=== PATIENT | female | born 1945 | race Caucasian/White ===

== ENCOUNTER 2023-01-18 09:45 | Day surgery (SDC) | payer MEDICARE, BC ==
[2023-01-18] VITALS (12 sets, daily range): BP systolic 115–153; BP diastolic 56–88
[~2023-01-18] VITALS: Ht 170.2 cm; Wt 85.3 kg
[~2023-01-18 09:45] MED LIST: ACYC-126 PO; ASPI81TA44 PO; ATEN50TA PO; BENA40TA73 PO; CLOP75TA15 PO; DYR50C PO; ESOM20CA PO; FOLI1TAB27 PO; NIFE60TA10 PO; PITA2TAB2 PO; SOLI10TA2 PO
[2023-01-18] MEDS ORDERED: diphenhydrAMINE 25mg capsule PO PRN (10:10)
[2023-01-18] MEDS ORDERED: normal saline 1000ml 1,000 ML IV SCH ×2 (10:10→14:55)
[2023-01-18] MEDS ORDERED: GABA-530 PO (10:21)
[2023-01-18] MEDS ORDERED: EZET10TA48 PO (10:21)
[2023-01-18] MEDS ORDERED: ASCO-139 PO (10:21)
[2023-01-18] MEDS ORDERED: ALLO100T PO (10:21)
[2023-01-18] MEDS ORDERED: PANT20TA2 PO (10:21)
[2023-01-18] MEDS ORDERED: HYDR12.55 PO (10:21)
[2023-01-18] MEDS ORDERED: nitroGLYCERIN-Tridil 50MG/D5W 250 ML IV ONE (10:32)
[2023-01-18] MEDS ORDERED: fentaNYL/PF 50MCG/1 ML 2ML syringe ONE (10:33)
[2023-01-18] MEDS ORDERED: heparin 1,000unit/ml 10ml vial 10 ML ONE (10:33)
[2023-01-18] MEDS ORDERED: iohexol 350 MG/ML 50ML vial IV ONE ×3 (10:33→13:53)
[2023-01-18] MEDS ORDERED: LIDOcaine 1% (10mg/ml) 2ml vial ONE (10:33)
[2023-01-18] MEDS ORDERED: verapamil 2.5 mg/ml inj IV ONE (10:33)
[2023-01-18] MEDS ORDERED: midazolam 1 mg/ML 2ml injection ONE ×2 (10:33→13:49)
[2023-01-18] MEDS ORDERED: iohexol 350MG/ML 100ml bottle IV ONE ×2 (10:33→13:12)
[2023-01-18 10:45] LABS: BASOPHILS # (AUTO) 0.1 X10'3 (0-0.2); BASOPHILS % (AUTO) 1.1 % (0-1); EOSINOPHILS # (AUTO) 0.3 X10'3 (0-0.9); HEMOGLOBIN 13.9 g/dl (12.0-16.0); LYMPHOCYTES # (AUTO) 2.1 X10'3 (1.1-4.8); LYMPHOCYTES % (AUTO) 30.5 % (21-51); MEAN CORPUSCULAR HEMOGLOBIN 31.2 PG (27.0-31.0); MEAN PLATELET VOLUME 8.9 FL (7.4-10.4); MONOCYTES # (AUTO) 0.5 X10'3 (0-0.9); MONOCYTES % (AUTO) 7.8 % (2-12); NEUTROPHILS # (AUTO) 3.9 X10'3 (1.8-7.7); NEUTROPHILS % (AUTO) 55.6 % (42-75); PLATELET COUNT 251 X10'3 (140-440); RED BLOOD COUNT 4.45 X10'6 (4.20-5.60); RED CELL DISTRIBUTION WIDTH 14.5 % (11.5-14.5)
[2023-01-18 10:47] LABS: ALBUMIN 4.1 G/DL (3.4-5.0); ANION GAP 6 (8-16); BLOOD UREA NITROGEN 23 MG/DL (7-18); BUN/CREATININE RATIO 27.1 (10.0-20.0); CALCIUM 9.6 MG/DL (8.5-10.1); CHLORIDE 103 MMOL/L (99-107); CREATININE 0.85 MG/DL (0.40-0.90); GLUCOSE 97 MG/DL (70-104); MAGNESIUM 2.2 MG/DL (1.5-2.4); POTASSIUM 3.8 MMOL/L (3.5-5.1); SODIUM 139 MMOL/L (135-145); eGFR 65 ML/MIN
[2023-01-18] MEDS ORDERED: LIDOcaine 1% 30ml preserv. free vial ONE (12:48)
[2023-01-18] MEDS ORDERED: clopidogrel 300mg tablet ONE (14:07)
[2023-01-18] MEDS ORDERED: ondansetron/PF 4mg/2ml inj IV PRN (14:55)
[2023-01-18] MEDS ORDERED: proCHLORperazine 10 MG/2 ml inj IV PRN (14:55)
[2023-01-18] MEDS ORDERED: HYDROcodone/acetaminophen 5mg/325mg tablet PO PRN (14:55)
[2023-01-18] MEDS ORDERED: HYDROcodone/acetaminophen 10/325mg tab PO PRN (14:55)
== END 2023-01-18 19:00 | disposition home or self-care (01) ==
LOC: SSTAY O 09:45
PROVIDERS: ATTEND Internal Medicine Cardiovascular Disease
DX: I25.10 Atherosclerotic heart disease of native coronary artery without angina pectoris (principal); I10 Essential (primary) hypertension; E78.5 Hyperlipidemia, unspecified; Z79.899 Other long term (current) drug therapy; I25.118 Atherosclerotic heart disease of native coronary artery with other forms of angina pectoris; I25.5 Ischemic cardiomyopathy; F40.240 Claustrophobia; K21.9 Gastro-esophageal reflux disease without esophagitis; M10.9 Gout, unspecified; Z90.710 Acquired absence of both cervix and uterus; Z95.5 Presence of coronary angioplasty implant and graft; Z88.8 Allergy status to other drugs, medicaments and biological substances
CPT/HCPCS: 36415; 80048; 83735; 85025; 85610; 93005; 93458; 99152; 99153; C1725; C1751; C1760; C1769; C1874; C1894; C9600; J1644; J2250; J2405; J3010; J3490; J7030; Q0163; Q9967; A6258; A6449